=== PATIENT | female | born 2000 | race Caucasian/White ===

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

== ENCOUNTER 2023-02-02 10:58 | Inpatient (IN) ==
[2023-02-02] MEDS ORDERED: NS 0.9% 1000 ml BAG 1,000 ML IV ONE ×2 (11:13→11:14)
[2023-02-02] MEDS ORDERED: Lorazepam PYXIS KEY PRN ×3 (11:14→13:57)
[2023-02-02] MEDS ORDERED: LORazepam 2 mg VIAL 1 ml IV PUSH ONE ×3 (11:14→13:57)
[2023-02-02 11:33] LABS: ABS Lymphocytes 0.8 10^3/uL (1.0-4.8); ABS Monocytes 0.3 10^3/uL (0.0-0.9); ABS Neutrophils 6.6 10^3/uL (1.5-7.6); ABS Nucleated RBC 0.01 10^3/ul; Hematocrit 39.4 % (35-45); Hemoglobin 13.6 g/dL (11.5-14.3); Lymphocyte % 10.1 %; Mean Corpuscular Hemoglobin 27.6 pg (27-33); Mean Corpuscular Hgb Conc 34.4 g/dL (31-36); Mean Corpuscular Volume 80.3 fL (80-97); Mean Platelet Volume 9.4 fL (7.5-11.2); Nucleated Red Blood Cells % 0.1 /100 WBC (0.0-0.4); Platelet Count 238 10^3/uL (150-450); Red Blood Count 4.92 10^6/uL (3.63-4.92); Red Cell Distribution Width 13.4 % (12-17); White Blood Count 7.7 10^3/uL (3.8-11.8)
[2023-02-02 11:47] LABS: ALT 19 U/L (7-52); AST 20 U/L (13-39); Albumin 4.8 g/dL (3.2-5.2); Albumin/Globulin Ratio 1.7 (1-3); Alkaline Phosphatase 65 U/L (35-149); Anion Gap 16 mmol/L (2-16); Blood Urea Nitrogen 18 mg/dL (6-24); CO2 Carbon Dioxide 19 mmol/L (22-32); Calcium 9.7 mg/dL (8.6-10.3); Chloride 103 mmol/L (101-111); Creatine Kinase 74 U/L (10-223); Creatinine, Serum 0.87 mg/dL (0.51-0.95); Globulin 2.9 g/dL (2-4); Glucose 112 mg/dL (70-100); Magnesium 1.4 mg/dL (1.9-2.7); Potassium 3.5 mmol/L (3.5-5.0); Sodium 138 mmol/L (135-145); Total Protein 7.7 g/dL (6.4-8.9); eGFR CKD-EPI 97.8 (>60)
[2023-02-02] MEDS ORDERED: Magnesium Sulfate IV 3 GM in NS 0.9% 100 ml BAG 100 ML IVPB ONE (11:49)
[2023-02-02 11:54] LABS: HCG Pregnancy < 0.60 mIU/mL
[2023-02-02 12:04] LABS: Acetaminophen < 15 mcg/mL; Alcohol, S < 13 mg/dL (<13); Salicylate < 2.50 mg/dL (<30)
[2023-02-02] MEDS ORDERED: Lactated Ringers 1000 ml BAG 1,000 ML IV SCH (14:00)
[2023-02-02] MEDS ORDERED: LORazepam 2 mg VIAL 1 ml IV PUSH PRN (14:56)
[2023-02-02 15:09] LABS: PCO2 Arterial 31 mmHg (35-45); PO2 Arterial 105 mmHg (80-100)
[2023-02-02 16:16] LABS: Urine Appearance Clear; Urine Bilirubin Negative (Negative); Urine Blood Negative (Negative); Urine Color Yellow; Urine Glucose Negative (Negative); Urine Ketones 2+ (Negative); Urine Nitrite Negative (Negative); Urine Protein Negative (Negative); Urine Specific Gravity 1.023 (1.002-1.030); Urine Urobilinogen Negative (Negative)
[2023-02-02 16:35] LABS: Urine Benzodiazepine Screen None Detected (None Detect); Urine Cannabinoids Screen None Detected (None Detect); Urine Opiates Screen None Detected (None Detect)
[2023-02-02] MEDS ORDERED: NS 0.9% 1000 ml BAG 1,000 ML IV SCH (18:00)
[2023-02-02] MEDS: Acetaminophen IV 1 GM/100ML 1,000 MG/100 ML BAG IV PRN (18:25)
[2023-02-02 19:18] LABS: Albumin 4.2 g/dL (3.2-5.2); Albumin/Globulin Ratio 1.8 (1-3); Calcium 8.5 mg/dL (8.6-10.3); Creatinine, Serum 0.62 mg/dL (0.51-0.95); Globulin 2.4 g/dL (2-4); Potassium 3.6 mmol/L (3.5-5.0); Total Bilirubin 0.8 mg/dL (0.2-1.0); Total Protein 6.6 g/dL (6.4-8.9); eGFR CKD-EPI 130.7 (>60)
[2023-02-02 20:23] LABS: High Sensitivity Troponin 1 Hr 4 pg/mL (<15)
[2023-02-03] MEDS ORDERED: LORazepam 2 mg VIAL 1 ml IV PUSH PRN ×2 (00:49→17:29)
[2023-02-03] MEDS: Acetaminophen IV 1 GM/100ML 1,000 MG/100 ML BAG IV PRN (04:38)
[2023-02-03 06:58] LABS: ABS Eosinophils 0.1 10^3/uL (0.0-0.5); ABS Lymphocytes 2.4 10^3/uL (1.0-4.8); ABS Monocytes 0.7 10^3/uL (0.0-0.9); ABS Neutrophils 4.6 10^3/uL (1.5-7.6); Hematocrit 35.7 % (35-45); Hemoglobin 12.4 g/dL (11.5-14.3); Lymphocyte % 30.3 %; Mean Corpuscular Hemoglobin 27.9 pg (27-33); Mean Corpuscular Hgb Conc 34.6 g/dL (31-36); Mean Corpuscular Volume 80.6 fL (80-97); Mean Platelet Volume 8.9 fL (7.5-11.2); Nucleated Red Blood Cells % 0.1 /100 WBC (0.0-0.4); Platelet Count 192 10^3/uL (150-450); Red Blood Count 4.44 10^6/uL (3.63-4.92); Red Cell Distribution Width 13.5 % (12-17); White Blood Count 7.8 10^3/uL (3.8-11.8)
[2023-02-03 07:14] LABS: Albumin 4.2 g/dL (3.2-5.2); Albumin/Globulin Ratio 1.7 (1-3); Calcium 9.1 mg/dL (8.6-10.3); Creatinine, Serum 0.58 mg/dL (0.51-0.95); Globulin 2.5 g/dL (2-4); Magnesium 1.8 mg/dL (1.9-2.7); Potassium 3.8 mmol/L (3.5-5.0); Total Protein 6.7 g/dL (6.4-8.9); eGFR CKD-EPI 132.8 (>60)
[2023-02-03] MEDS: Lactated Ringers 1000 ml BAG 1,000 ML IV ONE ×2 (13:25→22:37)
[2023-02-03 14:02] LABS: PCO2 Arterial 39 mmHg (35-45); PO2 Arterial 106 mmHg (80-100)
[2023-02-03] MEDS ORDERED: Magnesium Sulfate IV 3 GM in NS 0.9% 100 ml BAG 100 ML IVPB ONE (17:33)
[2023-02-03] MEDS: Enoxaparin 40 MG/0.4 ML SYR SUBCUT SCH (22:33)
[2023-02-04 06:46] LABS: Calcium 9.2 mg/dL (8.6-10.3); Creatinine, Serum 0.68 mg/dL (0.51-0.95); Potassium 4.1 mmol/L (3.5-5.0); eGFR CKD-EPI 127.8 (>60)
[2023-02-04] MEDS: Enoxaparin 40 MG/0.4 ML SYR SUBCUT SCH (21:32)
[2023-02-05] MEDS: Enoxaparin 40 MG/0.4 ML SYR SUBCUT SCH (20:32)
[2023-02-06] MEDS ORDERED: Al Hydrox/Mg Hydrox/Simet LIQ 30 ML UDC PO PRN (12:42)
[2023-02-07] MEDS: Vitamin THERAPEUTIC TAB PO SCH (09:55)
[2023-02-08] MEDS: Vitamin THERAPEUTIC TAB PO SCH (11:47)
[2023-02-08] MEDS: Venlafaxine XR 75 mg PO SCH (11:47)
[2023-02-09] MEDS: Venlafaxine XR 75 mg PO SCH (08:22)
[2023-02-09] MEDS: Vitamin THERAPEUTIC TAB PO SCH (08:22)
[2023-02-10] MEDS: Venlafaxine XR 75 mg PO SCH (09:02)
[2023-02-10] MEDS: Vitamin THERAPEUTIC TAB PO SCH (09:02)
[2023-02-10 09:21] VITALS: BP 109/61
[2023-02-11] MEDS: Vitamin THERAPEUTIC TAB PO SCH (09:59)
== END 2023-02-11 11:18 | disposition home or self-care (01) | DRG 812 ==
LOC: ED 10:58 → EDHOLD 10:58 → SUATTDRO 13:09 → SSU 17:23 → MEDTELE 17:30 → UNDODISIN 02-06 13:40 → BSU 02-06 15:00
PROVIDERS: ADMIT Internal Medicine; ATTEND Psychiatry & Neurology Psychiatry

== ENCOUNTER 2023-02-06 13:49 | Inpatient (IN) ==
[2023-02-06 14:02] VITALS: BP 93/54
[2023-02-06] MEDS ORDERED: Al Hydrox/Mg Hydrox/Simet LIQ 30 ML UDC PO PRN (14:17)
[2023-02-07] MEDS ORDERED: Multivitamins/Minerals TAB PO SCH (09:00)
== END 2023-02-06 14:56 | DRG 751 ==
LOC: BSU 13:49
PROVIDERS: ADMIT Psychiatry & Neurology Psychiatry; ATTEND Psychiatry & Neurology Psychiatry